=== PATIENT | male | born 1985 | race African-American/Black ===

== ENCOUNTER 2020-12-25 03:31 | Emergency (ER) | payer SELFPAY ==
[~2020-12-25] VITALS: Ht 182.9 cm; Wt 87.0 kg
[2020-12-25 03:42] VITALS: BP 139/90
[2020-12-25] MEDS ORDERED: HYDR28CR29 TP (04:37)
[2020-12-25] MEDS ORDERED: DIPH28.34 TP (04:37)
== END 2020-12-25 04:51 | disposition home or self-care (01) ==
LOC: ER 03:31
DX: S60.561A Insect bite (nonvenomous) of right hand, initial encounter (principal); W57.XXXA Bitten or stung by nonvenomous insect and other nonvenomous arthropods, initial encounter; Y93.89 Activity, other specified; Y92.89 Other specified places as the place of occurrence of the external cause; Z87.828 Personal history of other (healed) physical injury and trauma
CPT/HCPCS: 99282

== ENCOUNTER 2021-08-04 15:32 | Emergency (ER) | payer BC ==
[~2021-08-04] VITALS: Ht 182.9 cm; Wt 86.0 kg
[~2021-08-04 15:32] MED LIST: DIPH28.34 TP; HYDR28CR29 TP
[2021-08-04 18:36] VITALS: BP 135/80
== END 2021-08-04 18:37 | disposition home or self-care (01) ==
LOC: ER 15:32
DX: S30.0XXA Contusion of lower back and pelvis, initial encounter (principal); S70.01XA Contusion of right hip, initial encounter; V49.49XA Driver injured in collision with other motor vehicles in traffic accident, initial encounter; Y93.89 Activity, other specified; Y92.488 Other paved roadways as the place of occurrence of the external cause
CPT/HCPCS: 72100; 99283